=== PATIENT | male | born 1995 | race Hispanic/Latino ===

== ENCOUNTER 2022-10-21 04:58 | Emergency (ER) | payer OTHER ==
[~2022-10-21] VITALS: Ht 180.3 cm; Wt 117.9 kg
[2022-10-21] MEDS ORDERED: ONDA4TAB10 PO (05:23)
[2022-10-21] MEDS ORDERED: MECL-160 PO (05:23)
[2022-10-21 05:25] VITALS: BP 136/86
[2022-10-21] MEDS ORDERED: MECLIZINE HCL 25 MG TABLET PO ONE (05:30)
[2022-10-21] MEDS ORDERED: ONDANSETRON ODT 4MG TAB SL ONE (05:30)
[2022-10-21 05:31] LABS: APPEARANCE,URINE CLEAR (CLEAR); BILIRUBIN,URINE NEGATIVE (NEGATIVE); COLOR,URINE COLORLESS (YELLOW); GLUCOSE, URINE (UA) NEGATIVE (NEGATIVE); KETONES,URINE NEGATIVE (NEGATIVE); LEUKOCYTE ESTERASE ,URINE NEGATIVE Leu/uL (NEGATIVE); NITRATE,URINE NEGATIVE (NEGATIVE); OCCULT BLOOD,URINE NEGATIVE (NEGATIVE); PH,URINE 7.5 (5.0-8.0); PROTEIN,URINE NEGATIVE (NEGATIVE); UROBILINOGEN,URINE 0.2 mg/dL (0.2-1.0)
== END 2022-10-21 05:56 | disposition home or self-care (01) ==
LOC: EDH 04:58
DX: H81.10 Benign paroxysmal vertigo, unspecified ear (principal); R11.0 Nausea
CPT/HCPCS: 81003